=== PATIENT | female | born 1955 | race Caucasian/White ===

== ENCOUNTER 2021-01-13 09:31 | Emergency (ER) | payer MEDICARE, SELFPAY ==
--- NOTE | 2021-01-13 09:42 | ED.GENADUL_ITS ---
Discharge Plan Disposition Patient Disposition: HOME Condition: Stable Discharge Details Clinical Impression: Encounter for home hospice care, Ovarian cancer, Metastasis Primary Care Provider: Mary,Local ED Provider: Ashlie Bowden Home Meds and New Rx's Prescriptions: No Action Unable to Obtain RF: 0 Discharge Instructions Instructions: Ovarian Cancer (DC) Additional Instructions: You were evaluated by the emergency department in addition to the palliative care physician Dr. Carmelina Dennison who will arrange for home hospice today. Hospice care will follow up with you today at home. Discharge Data Discharge Date/Time-TO BE ENTERED AT DEPARTURE: 01/13/21 10:33 Discharge Physician: Ashlie Bowden Medical Decision Making 65-year-old female with a history of developmental delay, diabetes, hyperlipidemia, recently diagnosed metastatic ovarian cancer presents for e valuation for home hospice. Dr. Beltre called the ED informing us of patient's arrival. Shortly after patient checked into the ED, Dr. Beltre arrived to evaluate patient. She discussed with patient and her niece at bedside and plan is for home hospice. Dr. Larkin will arrange for this to happen at home this afternoon. Patient sister Karen who is the POA is currently in [place] handling patient's affairs and is returning soon to [place] today. Family and POA do not want any acute intervention at this time. Patient will return to home today for hospice nurse to evaluate this afternoon. Medical Records Medical records reviewed: Yes I reviewed the patient's medical records. HPI General Mode of arrival: ambulatory . Date/Time Provider Initiated Documentation: 01/13/21 09:33 . Limitations to Documentation: altered mental status and physical limitation . Information obtained by: patient and family . HPI Narrative: Patient is a 55-year-old female with a history of developmental delay and recently diagnosed ovarian cancer with metastasis presents for evaluation for home hospice. Patient presents with her niece Marni who is the daughter of patient's POA Karen. Marni states that patient had been living in [place] in a mcc for the past 15 years. She states she had a cough recently for which she was seen in [facility] in [place] and found to have ovarian cancer with extensive metastasis on CT scan. She also had 3 - Covid test. Her diagnoses were discussed with her Sister Karen who is her POA and decision was made to bring patient back to [place] for hospice. Related Data Home Medications Medication Instructions Recorded Confirmed Unknown [Unable to Obtain] 01/13/21 01/13/21 Allergies Allergy/AdvReac Type Severity Reaction Status Date / Time No Known Allergies Allergy Unverified 01/13/21 09:55 Review of Systems All systems reviewed & are unremarkable except as noted in HPI and below PFSH Medical History (Updated 01/13/21 @ 10:26 by Ashlie Bowden DO) Cognitive developmental delay Metastasis Ovarian cancer Prediabetes Surgical History (Updated 01/13/21 @ 10:24 by Ashlie Bowden DO) History of abdominal surgery History of ankle surgery Social History Smoking/Tobacco Use Status: Never Smoking risk assessment performed?: Yes Alcohol Intake: never Drug use: Never Substance use type: does not use Do you feel safe at home: Yes Do you feel safe in your relationship?: Yes Exam Const General: cooperative and no acute distress HENMT Head: normal to inspection Mouth: oral mucosae normal Eyes General: appearance normal, both eyes and all related structures Neck Neck: normal visual inspection Resp Effort & Inspection: normal respiratory effort and able to speak in complete sentences Cardio Rate: regular rate GI Inspection: distended Palpation: tender (Diffusely scattered) Skin General skin exam: no rashes or lesions noted Neuro General: patient alert and patient awake Motor: muscle tone normal throughout Extrem General: normal to inspection and full ROM Psych Appearance: grossly normal Affect: normal affect
[2021-01-13 09:49] VITALS: BP 164/73; PULSE 100; RESP 18; TEMP 36.6; O2SAT 95
--- NOTE | 2021-01-13 10:37 | NUR.NOTE ---
Nursing Note: Faxed cover sheet to [facility], [address] [place] [address] , [place], [place] requesting the discharge summary from her last admission. Shaunna David P [phone] F [phone]
--- OUTSIDE RECORDS SUMMARY | 2021-01-13 10:58 | XMS_ITS ---
:1955 Author Care Team Providers Name Role Phone [id number] Primary Care Provider Unavailable Allergies Code Code System Name Reaction Severity Status Onset [id number] RxNorm Latex ? ? Active ? Medications Name Status Start Date Stop Date ? ? erythromycin 5 mg/gram (0.5 %) eye ointment Active ? Not available APPLY 1 CM RIBBON INTO THE LOWER CONJUN CTIVAL SAC(S) IN THE AFFECTED EYE(S) BY OPHTHALMIC ROUTE 3 TIMES PER DAY for 7 days fluticasone propionate Active ? Not avail able GenTeal Tears Mild Active ? Not available ketotifen 0.025 % (0.035 %) eye drops Active ? Not available INSTILL 1 DROP INTO AFFECTED EYE(S) BY OPHTHALMIC ROUTE 2 TIMES PER DAY for 7 days Prozac Active ? Not available Tylenol Active ? Not available Zyrtec 10 mg tablet Active ? Not availabl e Take 1 tablet every day by oral route as needed for 10 days. Problems Name Status Onset Date Source ? Type 2 Diabetes Mellitus Active 03/22/2018 ? Anxiety Active 03/22/2018 ? Developmentally Disabled Active 03/22/2018 ? Retinitis Active 03/22/2018 ? Hearing Loss Active 03/22/2018 ? Procedures Date Name Performed by ? ? Foot/toes Surgery Procedure Information not available Results Lab Results None recorded. Past Encounters None recorded. Social History Tobacco Smoking Status Never Smoker Vaccine List None recorded. Plan of Care Reminders Provider Appointments None ? ? recorded. Lab None ? ? recorded. Referral None ? ? recorded. Procedures None ? ? recorded. Surgeries None ? ? recorded. Imaging None ? ? recorded. Vitals Height Weight BMI Blood Pressure 5 ft 4 in 138 lbs 23.7 kg/m2 128/68 mm[Hg]
--- NOTE | 2021-01-13 12:50 | W.PALLCONSUL ---
Date of service: 01/13/21 Time of Service: 10:56 History of Present Illness History of Present Illness Chief Complaint: new diagnosis of ovarian cancer, ascites, mets Narrative: Sailaja's sister called hospice to see if she could enroll her sister early in the am on 01/13. Sailaja has life-long developmental delay and had been living in a usp in [place], [place] when she developed a bloated abdomen and pain about 3-4 weeks ago. (This history is provided by Sailaja's niece, Marni, who brought her to the ER and from conversations with the hospice nurse who talked to Karen, Sailaja's sister and legal guardian). The usp brought her to a [place] hospital, which diagnosed ascites, an ovarian mass highly suspicious for ovarian cancer, and lung nodules, suspected to be metastases from the likely ovarian cancer. The hospital then discharged Sailaja to a SNF. When she was being transferred to the SNF, Sailaja became very agitated and refused to enter the SNF. Her sister, Karen, then tried to bring her back to her usp, but the usp would not take her back due to her advanced cancer. On the morning of Sailaja's ER visit, she had been vomited. Her sister Karen was in [place], seeking her own medical care. Her niece Marni was instructed by Karen to bring Sailaja to the ER for evaluation and likely referral to [facility]. I agreed to meet Sailaja at the ER. I saw Sailaja and met Marni (the niece). I discussed Sailaja's case with Dr Bowden. Sailaja was not in acute distress. She clearly has a distended abdomen and is made anxious by being in the ER. Based on Sailaja's sister's request to initiate hospice services, I signed orders for DME, medications, and filled out a Certificate of Terminal Illness. Sailaja will be admitted to hospice later on 01.13. Consults Consult date: 01/13/21 Requesting physician: Ashlie Bowden Assessment and Plan Assessment and plan (1) Ovarian cancer: Status: Chronic Assessment and plan: Recently diagnosed in [place]. Does not want interventions. Could not tolerate, due to her DD. Guardian and sister asked that she be admitted to hospice later today. Orders and CTI filled out at hospice office. (2) Palliative care patient: Status: Acute Assessment and plan: transitioning to hospice directly (3) Encounter for hospice care discussion: Status: Acute Assessment and plan: Sister Karen initiated the referral to hospice. (4) Metastasis: Status: Acute Assessment and plan: Reported to lung and likely to peritoneum and regional LN given her appearance. + ascites. Sailaja c/o pain to her RUQ. ? liver mets. Will review [place] health care records when they are sent to Hospice. (5) Developmental delay, moderate: Status: Acute Assessment and plan: Was living in usp in [facility] until a few weeks ago. Has never been able to live alone due to her DD, which has been life long. Is able to walk. Has limited verbal ability. (6) Patient has healthcare proxy: Status: Acute Assessment and plan: Sister Karen. Niece Marni was with Sailaja at time of ER visit as Karen was in [place] dealing with her own health issues. She will be returning to [place] later today to sign paperwork for Sailaja's admission to hospice. (7) History of Rebeka fundoplication: Status: Chronic Assessment and plan: Marni explained that Sailaja has surgery to prevent regurgitation when Sailaja was young. Likely Nissens, but not sure. (8) Abdominal pain: Status: Acute Assessment and plan: Sailaja pointed to her RUQ to me, but had diffuse pain on Dr Bowden's exam. (9) Ascites, malignant: Status: Acute Assessment and plan: Significant. May need parencentesis in the future, but Sailaja was too anxious to consider that now. Review of Systems Unobtainable due to (Sailaja cannot give detailed history, due to DD status) Constitutional Constitutional: Reports daytime sleepiness, Reports fatigue, Reports lethargy, Reports poor appetite and Reports weakness Eyes Eyes: Reports dry eyes ENT Ears, Nose, Mouth, and Throat: Reports dry mouth and Reports disequilibrium Cardiovascular Cardiovascular: Reports rapid heart rate, Reports dyspnea on exertion and Reports orthopnea Respiratory Respiratory: Reports dyspnea on exertion Gastrointestinal Gastrointestinal: Reports abdominal pain (Sailaja points to RUQ), Reports bloating, Reports constipation and Reports nausea Genitourinary Genitourinary: Reports urinary incontinence Musculoskeletal Musculoskeletal: Reports atrophy and Reports muscle weakness Integumentary/Breasts Skin/Breast: Reports dry skin Neurologic Neurologic: Reports behavioral changes, Reports confusion, Reports lack of coordination, Reports memory loss, Reports disequilibrium and Reports weakness Psychiatric Psychiatric: Reports anxiety, Reports behavioral changes, Reports change in appetite, Reports confusion, Reports difficulty concentrating, Reports memory loss and Reports panic attacks Endocrine Endocrine: Reports fatigue Hematologic/Lymphatic Hematologic/Lymphatic: Reports easy bruising PFS Medical History (Updated 01/14/21 @ 07:09 by Carmelina Dennison MD) Abdominal pain Ascites, malignant Cognitive developmental delay Developmental delay, moderate Encounter for hospice care discussion Metastasis Ovarian cancer Palliative care patient Patient has healthcare proxy sister Karen Prediabetes Surgical History (Updated 01/14/21 @ 07:09 by Carmelina Dennison MD) History of abdominal surgery History of ankle surgery History of Rebeka fundoplication Family History (Updated 01/14/21 @ 07:10 by Carmelina Dennison MD) Sister No problems noted. Niece No problems noted. 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 Do you need help understanding health information?: Always current occupation: has never worked due to her DD Current gender identity: female What is your relationship status?: never How often do you talk on the phone with friends or family?: three or more times per week How often do you get together with friends or relatives?: three or more times per week Panel score (0-1 are the most socially isolated patients): 1 What type of physical activity do you participate in: walking and sedentary lifestyle Duration: < 15 minutes/day Frequency: does not exercise Special antonia needs: No Agree to transfusion: No Seatbelt use: always Do you feel safe at home: Yes Do you feel safe in your relationship?: Yes Additional Social history: Sister Karen recently moved Saialja into her home in [place]. Health decline and recent cancer diagnosis led to Sailaja not being allowed back into her usp in [place], [place]. Sailaja has been through a lot of turmoil, both in her health and her living situation, since the beginning of Dec 2020. Sailaja would not tolerate surgery, chemo or radiation, per family. They are asking that she be put on hospice care and orders were sent in by me. Out of respect for her wishes, limited medical care was given in the ER. Exam Const General: cooperative, no acute distress, anxious and ill appearing Nutritional Appearance: average body habitus (but with distended abdomen, c/w ascites) Orientation: alert, awake and oriented to person Limitations: other limitations (minimally verbal due to moderate cognitive delays (can walk)) [facility] Head: normocephalic and atraumatic Ears: hearing grossly normal bilaterally General nose exam: external nose normal and no nasal discharge Face and sinus: dry mucous membranes Eyes Conjunctivae: conjunctivae normal Sclera: sclerae normal Pupils: PERRL Neck Neck: no lymphadenopathy, nontender and no JVD Resp Effort & Inspection: normal respiratory effort and no nasal flaring Auscultation: clear to auscultation bilaterally and diminished lung sounds (in bases) bilaterally Cardio Rate: tachycardic Rhythm: regular rhythm GI Inspection: distended Palpation: tender and ascites Auscultation: hypoactive bowel sounds Skin General skin exam: dry skin, ecchymosis and pallor Trauma: no lacerations or abrasions Wounds: no wounds Hair: general thinning Neuro General: patient alert, patient awake, oriented Patient Orientation: Person and Confused, moves all extremities and patient confused Cognition: abnormal cognition Speech: abnormal speech Gait: gait abnormal and wide-based Extrem General: no clubbing, cyanosis or edema, no pedal edema and muscle atrophy Psych Appearance: grossly normal and well kempt Speech and Movement: agitated and restless Mood: anxious mood Affect: anxious affect Attitude: cooperative Thought Process: impoverished Insight: poor Judgment: poor Other: Has had a legal guardian all her life Results Last Vital Signs Temp 97.9 F 01/13/21 09:49 Pulse 100 H 01/13/21 09:49 Resp 18 01/13/21 09:49 BP 164/73 H 01/13/21 09:49 Pulse Ox 95 01/13/21 09:49
== END 2021-01-13 10:33 | disposition home or self-care (01) ==
LOC: ER 10:56
PROVIDERS: Emergency Provider Physician Assistant
DX: C56.9 Malignant neoplasm of unspecified ovary (principal); C79.9 Secondary malignant neoplasm of unspecified site; Z51.5 Encounter for palliative care
CPT/HCPCS: 99281

== ENCOUNTER → 2021-01-26 10:46 | Outpatient (BNVA) | payer MEDICARE, SELFPAY | PROVIDERS: Visit Provider Surgery | DX: R18.0 Malignant ascites (principal); C56.9 Malignant neoplasm of unspecified ovary | CPT/HCPCS: 49082; 99213 ==

== ENCOUNTER → 2021-02-19 10:06 | Outpatient (BNVA) | payer MEDICARE, SELFPAY | PROVIDERS: Visit Provider Surgery | DX: R18.0 Malignant ascites (principal); C56.9 Malignant neoplasm of unspecified ovary | CPT/HCPCS: 49083; 99212 ==

== ENCOUNTER → 2021-03-16 08:08 | Outpatient (BNVA) | payer MEDICARE, SELFPAY | PROVIDERS: Visit Provider Surgery | DX: R69 Illness, unspecified (principal) | CPT/HCPCS: 99212 ==